=== PATIENT | female | born 1950 ===

== ENCOUNTER 2018-10-24 12:37 | Emergency (ER) | payer OTHER ==
[~2018-10-24] VITALS: Ht 157.5 cm; Wt 70.3 kg
[2018-10-24 13:48] LABS: BASOPHILS ABSOLUTE AUTO 0.06 K/mm3 (0.00-0.23); BASOPHILS PERCENT AUTO 1 % (0-2); EOSINOPHILS PERCENT AUTO 1 % (0-6); Hematocrit 44.5 % (33.0-51.0); Hemoglobin 14.6 g/dL (11.5-16.0); IMMATURE GRAN ABSOLUTE AUTO 0.03 K/mm3 (0.00-0.10); IMMATURE GRAN PERCENT AUTO 0 % (0-1); LYMPHOCYTES ABSOLUTE AUTO 2.44 K/mm3 (0.84-5.20); LYMPHOCYTES PERCENT AUTO 23 % (21-46); MONOCYTES ABSOLUTE AUTO 0.64 K/mm3 (0.16-1.47); MONOCYTES PERCENT AUTO 6 % (4-13); Mean Corpuscular HGB Conc 32.8 g/dL (31.5-36.5); Mean Corpuscular Volume 89 fL (80-100); Mean Platelet Volume 9.6 fL (9.1-12.4); NEUTROPHILS ABSOLUTE AUTO 7.19 K/mm3 (1.96-9.15); NEUTROPHILS PERCENT AUTO 69 % (41-73); Platelet Count 326 K/mm3 (150-400); Red Blood Cell Count 5.03 M/mm3 (3.80-5.20); White Blood Cell Count 10.46 K/mm3 (4.00-11.30)
[2018-10-24 14:07] LABS: Alanine Aminotransfer (ALT/SGP 37 U/L (12-78); Albumin, Blood 4.3 g/dL (3.4-5.0); Alk Phos 101 U/L (50-136); Anion Gap 8 mmol/L (6-16); Aspartate Aminotrans (AST/SGOT 27 U/L (12-37); Bilirubin, Total 0.5 mg/dL (0.1-1.0); Blood Urea Nitrogen 18 mg/dL (8-24); Bun/Creatinine Ratio 28.9 (12.0-20.0); CO2, Blood 28 mmol/L (21-32); Calcium, Blood 8.9 mg/dL (8.5-10.1); Chloride, Blood 104 mmol/L (98-108); Creatinine, Blood 0.62 mg/dL (0.40-1.00); Globulin, Blood 4.5 g/dL (2.2-4.0); Glomerular Filtration Rate >60 (60-); Glucose, Blood 98 mg/dL (70-99); Potassium, Blood 3.6 mmol/L (3.5-5.5); Sodium, Blood 140 mmol/L (136-145); Total Protein, Blood 8.8 g/dL (6.4-8.2); Troponin I <0.015 ng/mL (0.000-0.040)
== END 2018-10-24 17:38 | disposition home or self-care (01) ==
LOC: ER 12:37
PROVIDERS: Physician Assistant
DX: I10 Essential (primary) hypertension (principal); Z88.5 Allergy status to narcotic agent
CPT/HCPCS: 36415; 80053; 84484; 85025; 93005; 93010; 99283-25

== ENCOUNTER → 2019-10-02 | Outpatient (CLI) | payer OTHER | LOC: LAB 13:06 → LAB SHORT 13:06 | DX: R30.0 Dysuria (principal) | CPT/HCPCS: 87086 ==

== ENCOUNTER → 2021-03-03 | Outpatient (CLI) | payer OTHER | END | disposition home or self-care (01) | LOC: LAB 10:42 → LAB SHORT 10:42 | DX: R30.0 Dysuria (principal) | CPT/HCPCS: 87086 ==